=== PATIENT | female | born 1995 | race Caucasian/White ===

== ENCOUNTER 2019-11-06 07:46 | Observation (INO) | payer OTHER, BC ==
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
[2019-11-06 08:07] LABS: Glucose,Whole Blood 100 mg/dL (75-99)
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
[2019-11-06] MEDS ORDERED: DIPH,PERTUS(ACELL)TETVAC-LF 0.5 ML VIAL IM ONE (08:15)
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
[2019-11-06 09:04] LABS: ALT 82 U/L (4-34); AST 107 U/L (14-36); African American GFR (CKD) >90 (>60 ml/min/1.73 sqM); Albumin 4.3 g/dL (3.5-5.0); Alcohol <10 mg/dL; Alkaline Phosphatase 112 U/L (38-126); Anion Gap 9 mmol/L; Blood Urea Nitrogen 14 mg/dL (7-17); Calcium 9.3 mg/dL (8.4-10.2); Carbon Dioxide 26 mmol/L (22-30); Chloride 105 mmol/L (98-107); Glucose 96 mg/dL (74-99); Non-African American GFR(CKD) >90 (>60 ml/min/1.73 sqM); Potassium 3.9 mmol/L (3.5-5.1); Sodium 140 mmol/L (137-145); Total Bilirubin 0.5 mg/dL (0.2-1.3); Total Protein 7.8 g/dL (6.3-8.2)
[2019-11-06 09:05] LABS: Basophils # (A) 0.1 k/uL (0-0.2); Basophils % (A) 1 %; Eosinophils # (A) 0.4 k/uL (0-0.7); Eosinophils % (A) 3 %; HCT 40.3 % (34.0-46.0); HGB 13.5 gm/dL (11.4-16.0); Lymphocytes # (A) 2.4 k/uL (1.0-4.8); Lymphocytes % (A) 16 %; MCH 26.9 pg (25.0-35.0); MCHC 33.5 g/dL (31.0-37.0); MCV 80.1 fL (80.0-100.0); Mean Platelet Volume 6.7; Monocytes # (A) 0.5 k/uL (0-1.0); Monocytes % (A) 3 %; Neutrophils # (A) 10.9 k/uL (1.3-7.7); Neutrophils % (A) 76 %; Platelet Count 384 k/uL (150-450); Poikilocytosis Slight; RBC 5.03 m/uL (3.80-5.40); RDW 13.9 % (11.5-15.5); WBC 14.4 k/uL (3.8-10.6)
[2019-11-06 09:17] LABS: INR 0.9 (<1.2); Partial Thromboplastin Time 24.1 sec (22.0-30.0); Prothrombin Time 9.7 sec (9.0-12.0)
[2019-11-06 09:33] LABS: Appearance,Urine Clear (Clear); Bilirubin,Urine Negative (Negative); Blood,Urine Small (Negative); Color,Urine Light Yellow; Glucose,Urine (UA) Negative (Negative); Ketones,Urine Negative (Negative); Leukocyte Esterase,Urine Negative (Negative); Mucus,Urine Rare /hpf; Nitrite,Urine Negative (Negative); Protein,Urine Trace (Negative); RBC,Urine 23 /hpf (0-5); Squamous Epithelial Cell,Urine 12 /hpf (0-4); Urobilinogen,Urine <2.0 mg/dL (<2.0); WBC,Urine 4 /hpf (0-5)
[2019-11-06] MEDS ORDERED: SODIUM CHLORIDE 0.9% 1,000 ML IV ONE (09:52)
[2019-11-06] MEDS ORDERED: fentaNYL (PF) 50 MCG/ML 2 ML AMP IVP STA (10:01)
[2019-11-06] MEDS ORDERED: NALOXONE 0.4 MG/ML 1 ML VIAL IV PRN (10:02)
[2019-11-06] MEDS ORDERED: HYDROmorphone 0.5 MG/0.5 ML SYRINGE IVP PRN (10:02)
[2019-11-06 10:06] LABS: Amphetamine Screen,Urine Not Detected (NotDetected); Barbiturate Screen,Urine Not Detected (NotDetected); Benzodiazepines Screen,Urine Not Detected (NotDetected); Cocaine Screen,Urine Not Detected (NotDetected); Methadone Screen, Urine Not Detected (NotDetected); Opiate Screen,Urine Not Detected (NotDetected); Oxycodone Screen, Urine Not Detected (NotDetected); Phencyclidine Screen,Urine Not Detected (NotDetected); Tricyclic Antidepressant,Urine Not Detected (NotDetected); Urn Cannabinoid Scrn Not Detected (NotDetected)
[2019-11-06] MEDS ORDERED: TOPICAL SKIN ADHESIVE 1 EACH AMP TOPICAL ONE (10:07)
[2019-11-06] MEDS: SODIUM CHLORIDE 0.9% 1,000 ML IV SCH (10:21)
[2019-11-06 10:32] LABS: Specific Gravity,Urine >1.050 (1.001-1.035)
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
[2019-11-06 12:34] LABS: Carbon Dioxide 25 mmol/L (22-30); Chloride 107 mmol/L (98-107); Glucose 97 mg/dL (74-99); Sodium 140 mmol/L (137-145)
[2019-11-06 12:35] LABS: African American GFR (CKD) >90 (>60 ml/min/1.73 sqM); Anion Gap 8 mmol/L; Blood Urea Nitrogen 12 mg/dL (7-17); Calcium 9.2 mg/dL (8.4-10.2); Non-African American GFR(CKD) >90 (>60 ml/min/1.73 sqM)
[2019-11-06 12:37] LABS: Basophils # (A) 0.1 k/uL (0-0.2); Basophils % (A) 0 %; Eosinophils # (A) 0.1 k/uL (0-0.7); Eosinophils % (A) 1 %; HCT 38.4 % (34.0-46.0); HGB 13.4 gm/dL (11.4-16.0); Lymphocytes % (A) 12 %; MCH 27.9 pg (25.0-35.0); MCHC 34.8 g/dL (31.0-37.0); MCV 80.2 fL (80.0-100.0); Mean Platelet Volume 6.7; Monocytes # (A) 0.6 k/uL (0-1.0); Monocytes % (A) 4 %; Neutrophils # (A) 14.1 k/uL (1.3-7.7); Neutrophils % (A) 83 %; Platelet Count 405 k/uL (150-450); Poikilocytosis Slight; RBC 4.79 m/uL (3.80-5.40); RDW 13.9 % (11.5-15.5); WBC 17.1 k/uL (3.8-10.6)
--- NOTE | 2019-11-06 13:45 | CT ---
EXAMINATION TYPE: CT angio chest DATE OF EXAM: 11/06/2019 1:09 PM COMPARISON: Previous study of earlier today. HISTORY: ascending thoracic aneurysm CT DLP: 1328 mGycm Automated exposure control for dose reduction was used. CONTRAST: CTA scan of the thorax is performed without and with IV Contrast, patient injected with 100 mL of Iso jignesh 370, pulmonary embolism protocol. . FINDINGS: Visualized portions of the lungs are clear. There is some shotty axillary adenopathy. There is no significant mediastinal or hilar adenopathy. There is no pleural or pericardial fluid. Through the aorta is dilated measuring 4.5 cm. The proximal arch is dilated measuring 3.6 cm. The pro ximal descending thoracic aorta is normal in caliber measuring 2.3 cm. The remainder the visualized a lillian is normal in caliber. There is no evidence of dissection heart size upper limits of normal. Within the abdomen, the liver is mildly enlarged measuring 18 cm. It is low in attenuation and likely fatty infiltrated. Visualized portions of the upper abdomen are otherwise unremarkable. There is a moderate dextroscoliosis present. IMPRESSION: 1. ASCENDING THORACIC AORTIC ANEURYSM. 2. NO SIGNIFICANT CHANGE FROM THE PREVIOUS EXAMINATION OF THIS MORNING.
[2019-11-06] MEDS: HYDROcodone/APAP 5-325MG 1 EACH TAB PO PRN ×2 (14:17→17:49)
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
[2019-11-06] MEDS: KETOROLAC 30 MG/ML 1 ML VIAL IVP SCH ×2 (16:28→23:33)
--- NOTE | 2019-11-06 18:23 | XR ---
EXAMINATION TYPE: XR shoulder complete RT DATE OF EXAM: 11/06/2019 COMPARISON: NONE HISTORY: Shoulder pain TECHNIQUE: 3 views FINDINGS: There is no sign of fracture nor dislocation. Glenohumeral joint is intact. There are no pa thologic calcifications. IMPRESSION: Negative right shoulder exam.
[2019-11-07] MEDS: HYDROcodone/APAP 5-325MG 1 EACH TAB PO PRN ×2 (00:44→14:25)
[2019-11-07] MEDS: KETOROLAC 30 MG/ML 1 ML VIAL IVP SCH ×2 (05:01→12:07)
[2019-11-07 06:31] LABS: Basophils # (A) 0.1 k/uL (0-0.2); Basophils % (A) 1 %; Eosinophils # (A) 0.4 k/uL (0-0.7); Eosinophils % (A) 4 %; HCT 37.6 % (34.0-46.0); HGB 12.3 gm/dL (11.4-16.0); Lymphocytes # (A) 2.5 k/uL (1.0-4.8); Lymphocytes % (A) 31 %; MCH 26.5 pg (25.0-35.0); MCHC 32.8 g/dL (31.0-37.0); MCV 80.6 fL (80.0-100.0); Mean Platelet Volume 6.7; Monocytes # (A) 0.4 k/uL (0-1.0); Monocytes % (A) 5 %; Neutrophils # (A) 4.6 k/uL (1.3-7.7); Neutrophils % (A) 57 %; Platelet Count 299 k/uL (150-450); RBC 4.67 m/uL (3.80-5.40); RDW 14.1 % (11.5-15.5); WBC 8.2 k/uL (3.8-10.6)
[2019-11-07 06:42] LABS: ALT 72 U/L (4-34); AST 71 U/L (14-36); African American GFR (CKD) >90 (>60 ml/min/1.73 sqM); Albumin 3.7 g/dL (3.5-5.0); Alkaline Phosphatase 83 U/L (38-126); Anion Gap 4 mmol/L; Blood Urea Nitrogen 12 mg/dL (7-17); Calcium 8.8 mg/dL (8.4-10.2); Carbon Dioxide 28 mmol/L (22-30); Chloride 105 mmol/L (98-107); Glucose 93 mg/dL (74-99); Non-African American GFR(CKD) >90 (>60 ml/min/1.73 sqM); Potassium 4.7 mmol/L (3.5-5.1); Sodium 137 mmol/L (137-145); Total Bilirubin 0.6 mg/dL (0.2-1.3); Total Protein 6.8 g/dL (6.3-8.2)
[2019-11-07] MEDS: SODIUM CHLORIDE 0.9% 1,000 ML IV SCH (07:49)
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
[2019-11-07 09:51] VITALS: RESP 16
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
[2019-11-07 13:44] VITALS: BP 123/92; PULSE 99; TEMP 99.7
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
== END 2019-11-07 16:15 | disposition home or self-care (01) ==
LOC: EC 07:46 → 3SCARD 10:02
PROVIDERS: ADMIT Surgery; ATTEND Surgery
DX: S00.03XA Contusion of scalp, initial encounter (principal); S49.91XA Unspecified injury of right shoulder and upper arm, initial encounter; S20.311A Abrasion of right front wall of thorax, initial encounter; S30.811A Abrasion of abdominal wall, initial encounter; S00.83XA Contusion of other part of head, initial encounter; S61.012A Laceration without foreign body of left thumb without damage to nail, initial encounter; S40.812A Abrasion of left upper arm, initial encounter; S40.811A Abrasion of right upper arm, initial encounter; S00.81XA Abrasion of other part of head, initial encounter; I71.2 Thoracic aortic aneurysm, without rupture; R00.0 Tachycardia, unspecified; R59.0 Localized enlarged lymph nodes; K76.0 Fatty (change of) liver, not elsewhere classified; K44.9 Diaphragmatic hernia without obstruction or gangrene; R94.39 Abnormal result of other cardiovascular function study; I35.1 Nonrheumatic aortic (valve) insufficiency; M41.85 Other forms of scoliosis, thoracolumbar region; J45.909 Unspecified asthma, uncomplicated; Z23 Encounter for immunization; Z79.899 Other long term (current) drug therapy; Z88.0 Allergy status to penicillin; Z90.89 Acquired absence of other organs; Z86.79 Personal history of other diseases of the circulatory system; V58.5XXA Driver of pick-up truck or van injured in noncollision transport accident in traffic accident, initial encounter; Y92.410 Unspecified street and highway as the place of occurrence of the external cause
CPT/HCPCS: 96376; 96375; 12001; 90471; 96361; 96374; 99291; 36415; 93005; 93306; 86900; 86901; 80053 ×2; 80048; 84484; 85025 ×2; 85610; 85730; 86850; 81001; 81025; 80306; 80320; 72170; 73030; 71045; 72125; 70450; 71260; 71275; 74177; 90715; G0378 ×2; J3010; J1885 ×2; Q9967 ×2

== ENCOUNTER → 2020-11-06 | Outpatient (CLI) | payer BC ==
--- NOTE | 2020-11-06 14:51 | CT ---
EXAMINATION TYPE: CT angio chest DATE OF EXAM: 11/06/2020 2:28 PM COMPARISON: 11/06/2019 HISTORY: thoracic aneurysm CT DLP: 1178.5 mGycm Automated exposure control for dose reduction was used. CONTRAST: CTA scan of the thorax is performed without and with IV Contrast, patient injected with 100 mL of Iso jignesh 370, pulmonary embolism protocol. . FINDINGS: LUNGS: The lungs are grossly clear, there is no concerning parenchymal mass or nodule identified. T here is no pleural effusion or pneumothorax seen. The tracheobronchial tree is patent. MEDIASTINUM: Exam is limited by respiratory motion. Assessment for dissection or the aortic root is n ondiagnostic due to motion artifact. Caliber the aorta similar the prior exam measuring approximately 4.5 cm above. Descending thoracic aorta has a normal caliber. OTHER: Shotty adenopathy in the axilla. Curvature of the spine correlate for scoliosis. IMPRESSION: 1. Limited exam due to motion artifact. Ascending aorta again measures approximately 4.5 cm and stabl e in appearance. 2. Severe scoliosis
== END | disposition home or self-care (01) ==
LOC: RADCTMAIN 13:45
PROVIDERS: ATTEND Surgery
DX: I71.2 Thoracic aortic aneurysm, without rupture (principal)
CPT/HCPCS: 71275; Q9967

== ENCOUNTER → 2021-11-27 | Outpatient (CLI) | payer BC ==
--- NOTE | 2021-11-28 09:00 | ECHOF ---
Referral Reason:I71.2 Q23.1 MEASUREMENTS -------- HEIGHT: 160.0 cm WEIGHT: 111.1 kg BP: RVIDd: 2.7 cm (< 3.3) IVSd: 1.3 cm (0.6 - 1.1) LVIDd: 3.5 cm (3.9 - 5.3) LVPWd: 1.2 cm (0.6 - 1.1) IVSs: 1.7 cm LVIDs: 1.5 cm LVPWs: 1.3 cm Ao Diam: 3.8 cm (2.0 - 3.7) AV Cusp: 2.1 cm (1.5 - 2.6) LA Diam: 2.9 cm (2.7 - 3.8) MV EXCURSION: 13.536 mm (> 18.000) MV EF SLOPE: 102 mm/s (70 - 150) EPSS: 0.8 cm MV E Иван: 1.03 m/s MV DecT: 176 ms MV A Иван: 0.74 m/s MV E/A Ratio: 1.39 AR PHT: 404 ms RAP: 5.00 mmHg RVSP: 12.80 mmHg FINDINGS -------- This was a technically difficult study with suboptimal views. The left ventricular size is normal. There is mild concentric left ventricular hypertrophy. Overa ll left ventricular systolic function is normal with, an EF between 55 - 60 %. The right ventricle is normal in size. The left atrial size is normal. The right atrial size is normal. xx ml of Lumason was utilized for enhancement of images. The aortic valve was not well visualized. There is mild aortic regurgitation. The mitral valve is normal. There is trace mitral regurgitation. The tricuspid valve appears structurally normal. Mild tricuspid regurgitation present. Right vent ricular systolic pressure is normal at < 35 mmHg. The pulmonic valve was not well visualized. The aortic root measures 3.8 cm. and ascending aorta measuring up to 4.0 cm. IVC Not well visulized. There is no pericardial effusion. CONCLUSIONS -------- 1. The left ventricular size is normal. 2. There is mild concentric left ventricular hypertrophy. 3. Overall left ventricular systolic function is normal with, an EF between 55 - 60 %. 4. There is mild aortic regurgitation. 5. There is trace mitral regurgitation. 6. Mild tricuspid regurgitation present. 7. The aortic root measures 3.8 cm. and ascending aorta measuring up to 4.0 cm. 8. There is no pericardial effusion. LACROSSE COACH: Jie Negrete RDCS
== END | disposition home or self-care (01) ==
LOC: RADECHMAIN 11:33
PROVIDERS: ATTEND Surgery
DX: I34.0 Nonrheumatic mitral (valve) insufficiency (principal); I35.1 Nonrheumatic aortic (valve) insufficiency; I07.1 Rheumatic tricuspid insufficiency
CPT/HCPCS: 93306; Q9950

== ENCOUNTER → 2022-11-13 | Outpatient (CLI) | payer BC ==
--- NOTE | 2022-11-13 15:01 | CT ---
EXAMINATION TYPE: CT angio chest CT DLP: 922 mGycm, Automated exposure control for dose reduction was used. DATE OF EXAM: 11/13/2022 2:42 PM COMPARISON: 11/06/2020 CLINICAL INDICATION:Female, 27 years old with history of I71.20 THORACIC AORTIC ANEURYSM, WITHOUT RUP TURE,; Thoracic aortic aneurysm TECHNIQUE/CONTRAST: CTA scan of the thorax is performed without and with IV Contrast, patient injected with 100 ml mL of Isovue 370, pulmonary embolism protocol. MIP images are created and reviewed these are created on a separate workstation.. FINDINGS: Lungs/Pleura: No evidence of focal consolidation, pleural effusion or pneumothorax. Airway: Large airways are patent. Heart: Heart is within normal limits for size. Vasculature: Mild scattered atherosclerosis of the arterial vasculature. No evidence for intramural h ematoma. Ascending thoracic aorta is mildly dilated up to 4.2 cm. Mediastinum: No gross evidence of adenopathy. Musculoskeletal: No acute osseous abnormalities. Mild multilevel disc degeneration changes of the spi ne with dextroscoliosis. Soft Tissues: Unremarkable. Lower neck: No significant findings. Upper Abdomen: No significant findings. IMPRESSION: Mild ascending thoracic aorta ectasia up to 4.2 cm. This may be minimally increased in size from 2020 where it measured 3.8 cm, differences could be due to phase of cardiac cycle.
== END | disposition home or self-care (01) ==
LOC: RADCTMAIN 13:59
PROVIDERS: ATTEND Surgery
DX: I71.20 Thoracic aortic aneurysm, without rupture, unspecified (principal)
CPT/HCPCS: 71275; Q9967

== ENCOUNTER → 2023-11-17 | Outpatient (CLI) | payer BC ==
--- NOTE | 2023-11-17 15:09 | CT ---
CTA chest EXAMINATION TYPE: CT angio chest DATE OF EXAM: 11/17/2023 INDICATION: F/U thoracic aortic aneurysm. CT DLP: 1272.20 mGycm, Automated exposure control for dose reduction was used. CONTRAST: Patient injected with 85ml mL of Isovue 370. COMPARISON: 11/13/2022 TECHNIQUE: CT of the chest is performed on a spiral scan at 2 mm thick sections. Study is performed with intravenous contrast timed for evaluation for thoracic aorta This will limit additional portions of the evaluation. 3 reconstructed images performed on a separate computer by the technologist are bradley luke. FINDINGS: 18 pulmonary artery at the bifurcation is 2.6 cm. The ascending thoracic aorta at the main pulmonary artery is 4.2 cm. Aorta at the aortic root measure s 3.4 cm. Mid aortic arch transverse dimension is 2.7 cm. The descending thoracic aorta at the diaphr agm measures 2.2 cm. Proximal abdominal aorta within the upper abdomen tapers normally. No mediastinal or hilar adenopathy enlarged by CT criteria is evident. Lung windows are clear. There is a common origin of the innominate and the left common carotid artery. Limited CT section through the upper abdomen are unremarkable. IMPRESSION: 1. Stable appearing Ascending thoracic aortic aneurysm measuring 4.2 cm in the midportion right
--- NOTE | 2023-11-17 17:54 | CA ---
Transthoracic Echo Report Name: Mata Lai Age: 28 Gender: F : 1995 Exam Date: 11/17/2023 13:45 Exam Location: [facility] Ht (in): 63 Wt (lb): 240 Ordering Physician: Corin Givens MD Attending/Referring Phys: Rare/Endangered Species Specialist Aliya Hancock RDCS Procedure CPT: Indications: I35.8 aortic valve disorder Cardiac Hx: Technical Quality: Fair Contrast 1: Total Dose (mL): Contrast 2: Total Dose (mL): MEASUREMENTS (Male / Female) Normal Values 2D ECHO LV Diastolic Diameter PLAX 3.7 cm 4.2 - 5.9 / 3.9 - 5.3 cm LV Systolic Diameter PLAX 2.1 cm IVS Diastolic Thickness 1.5 cm 0.6 - 1.0 / 0.6 - 0.9 cm LVPW Diastolic Thickness 1.4 cm 0.6 - 1.0 / 0.6 - 0.9 cm LV Relative Wall Thickness 0.8 RV Internal Dim ED PLAX 2.8 cm LA Volume 55.1 cm??? 18 - 58 / 22 - 52 cm??? LA Volume Index 24.4 cm???/m??? 16 - 28 cm???/m??? M-MODE Aortic Root Diameter MM 3.5 cm LA Systolic Diameter MM 3.6 cm LA Ao Ratio MM 1.0 AV Cusp Separation MM 2.5 cm DOPPLER AV Peak Velocity 144.8 cm/s AV Peak Gradient 8.4 mmHg AV Mean Velocity 106.0 cm/s AV Mean Gradient 4.9 mmHg AV Velocity Time Integral 27.0 cm AI Peak Velocity 418.4 cm/s AI Peak Gradient 70.0 mmHg AI Pressure Half Time 723.8 ms LVOT Peak Velocity 76.3 cm/s LVOT Peak Gradient 2.3 mmHg LVOT Velocity Time Integral 17.2 cm MV Area PHT 4.0 cm??? Mitral E Point Velocity 91.4 cm/s Mitral A Point Velocity 56.6 cm/s Mitral E to A Ratio 1.6 MV Deceleration Time 187.7 ms MV E' Velocity 9.3 cm/s Mitral E to MV E' Ratio 9.8 TR Peak Velocity 233.2 cm/s TR Peak Gradient 21.7 mmHg Right Ventricular Systolic Press 25.4 mmHg FINDINGS Left Ventricle Moderately increased left ventricular wall thickness. Left ventricular cavity size normal. Normal left ventricular systolic function with no obvious regional wall motion abnormalities. Left ventricular ejection fraction is estimated at 55-60 %. Normal left ventricular diastolic filling pattern. Right Ventricle Normal right ventricular size and function. Right ventricular systolic pressure within normal limits. Right Atrium Normal right atrial size. Left Atrium Mildly increased left atrial volume. Mitral Valve Structurally normal mitral valve. No mitral stenosis. Mild mitral regurgitation. Aortic Valve Trileaflet aortic valve. No aortic stenosis. Mild aortic regurgitation. Tricuspid Valve Structurally normal tricuspid valve. Mild tricuspid regurgitation. Pulmonic Valve Structurally normal pulmonic valve. Pericardium No pericardial effusion. Aorta Mildly dilated proximal ascending aorta (tube). CONCLUSIONS Normal LV systolic function Mild aortic regurgitation Previewed by: Dr. Hamlet Khan MD (Electronically Signed) Final Date: 17 November 2023 17:53
== END | disposition home or self-care (01) ==
LOC: RADCTMAIN 13:07
PROVIDERS: ATTEND Surgery
DX: I71.21 Aneurysm of the ascending aorta, without rupture (principal); I35.1 Nonrheumatic aortic (valve) insufficiency; I35.8 Other nonrheumatic aortic valve disorders; I25.3 Aneurysm of heart
CPT/HCPCS: 93306; 71275; Q9967

== ENCOUNTER → 2024-11-18 | Outpatient (CLI) | payer BC ==
--- NOTE | 2024-11-18 10:20 | CT ---
EXAMINATION TYPE: CT chest wo con DATE OF EXAM: 11/18/2024 COMPARISON: CTA chest November 17, 2023 HISTORY: THORACIC ANEURYSM CT DLP: 634.8 mGycm. Automated Exposure Control for Dose Reduction was Utilized. TECHNIQUE: CT scan of the thorax is performed without IV contrast. FINDINGS: LUNGS: The lungs are grossly clear, there is no concerning parenchymal mass or focal consolidation id entified. There is no pleural effusion or pneumothorax seen. The tracheobronchial tree is patent. MEDIASTINUM: Lack of IV contrast is noted to limit evaluation for mediastinal and especially hilar ad enopathy. There are no definitive greater than 1 cm mediastinal lymph nodes. No cardiomegaly or per icardial effusion is seen. There is ascending aortic aneurysm measuring up to 4.3 cm the level of the main pulmonary artery image 25. Normal three-vessel origin from the aortic arch. No aneurysmal exten tank into the arch or descending aorta. OTHER: The liver is heterogeneously hypodense consistent with diffuse fatty infiltrative hepatocellul ar disease. Dextroconvex scoliosis centered in the mid to lower thoracic spine is seen. IMPRESSION: Ascending aortic aneurysm up to 4.3 cm remains present. No significant interval change ac counting for technical differences. [facility], , 11/18/2024 10:18 AM
== END | disposition home or self-care (01) ==
LOC: RADCTMAIN 09:56
PROVIDERS: ATTEND Surgery
DX: I71.21 Aneurysm of the ascending aorta, without rupture (principal)
CPT/HCPCS: 71250